=== PATIENT | male | born 1995 | race Caucasian/White ===

== ENCOUNTER 2018-04-03 13:07 | Emergency (ER) | payer MEDICAID ==
[~2018-04-03] VITALS: Ht 177.8 cm; Wt 77.0 kg
[2018-04-03 13:11] VITALS: BP 122/76
== END 2018-04-03 16:01 | disposition home or self-care (01) ==
LOC: ER 15:49
DX: H60.92 Unspecified otitis externa, left ear (principal)
CPT/HCPCS: 99283

== ENCOUNTER 2019-06-10 10:49 | Emergency (ER) | payer MEDICAID ==
[~2019-06-10] VITALS: Ht 167.6 cm; Wt 82.0 kg
[2019-06-10 13:25] VITALS: BP 114/78
[2019-06-10 14:13] LABS: CLARITY URINE CLEAR (CLEAR); COLOR URINE YELLOW (YELLOW); KETONES URINE NEGATIVE (NEGATIVE); LEUKOCYTE ESTERASE URINE NEGATIVE (NEGATIVE); NITRITE URINE NEGATIVE (NEGATIVE); OCCULT BLOOD URINE NEGATIVE (NEGATIVE); PH URINE 6.5 (4.5-8.0); PROTEIN URINE NEGATIVE (NEGATIVE); SPECIFIC GRAVITY URINE 1.021 (1.005-1.030); UROBILINOGEN URINE 0.2 E.U./dL (0.2-1.0)
== END 2019-06-10 14:46 | disposition home or self-care (01) ==
LOC: ER 10:49
DX: N39.498 Other specified urinary incontinence (principal); R33.9 Retention of urine, unspecified
CPT/HCPCS: 81003; 99283